=== PATIENT | female | born 2000 | race Hispanic/Latino ===

== ENCOUNTER 2022-10-28 13:07 | Emergency (ER) | payer OTHER ==
[~2022-10-28] VITALS: Ht 149.9 cm; Wt 52.2 kg
[2022-10-28 13:09] VITALS: BP 135/85
[2022-10-28] MEDS ORDERED: MUPI22OI2 TP (14:58)
[2022-10-28] MEDS ORDERED: IBUP-2070 PO (14:58)
[2022-10-28] MEDS ORDERED: CEPH500C2 PO (14:58)
== END 2022-10-28 15:31 | disposition home or self-care (01) ==
LOC: EDH 13:07
DX: L03.012 Cellulitis of left finger (principal)
CPT/HCPCS: 10060